=== PATIENT | male | born 2000 | race Caucasian/White ===

== ENCOUNTER 2022-01-27 13:40 | Emergency (ER) | payer OTHER, SELFPAY ==
--- NOTE | 2022-01-27 13:41 | ED.URI ---
HPI - URI/Sore Throat General Chief Complaint: Upper Respiratory Infection Stated Complaint: Headache/Sore Throat Time Seen by Provider: 01/27/22 13:41 Source: patient and RN notes reviewed History of Present Illness HPI Narrative: Patient is a 21-year-old male who presents the urgent care with complaints of a headache and a scratchy throat. Patient states that he woke up this morning and felt that he was having an allergy flareup . Patient states that he had itchy skin, immediate headache. Denies of any known exposure to illness. Patient states he did take a generic allergy medication this morning and his sore throat does feel much better. Patient denies of any fevers, nausea, vomiting. Patient states his main concern is that he called off work today and needed to be evaluated. No other acute complaints. No acute distress noted. Patient aware of the plan of care. Some parts of this dictation were generated by voice recognition software and may contain typographical and/or grammatical inaccuracies. Related Data Home Medications Medication Instructions Recorded Confirmed No Home Medications 01/27/22 01/27/22 Allergies Allergy/AdvReac Type Severity Reaction Status Date / Time No Known Allergies Allergy Verified 01/27/22 13:56 Review of Systems Review of Systems: CONSTITUTIONAL: Denies fever, chills, or sweats. EYES: Denies visual changes, redness, or discharge. ENT: Reports of postnasal drainage, sneezing, scratchy throat CARDIOVASCULAR: Denies chest pain, palpitations, or edema. RESPIRATORY: Denies cough or dyspnea. GASTROINTESTINAL: Denies abdominal pain, nausea, vomiting, or diarrhea. GENITOURINARY: Denies dysuria or hematuria. SKIN: Denies rash or itching. MUSCULOSKELETAL: Denies back pain, joint pain, or myalgia. NEUROLOGIC: Reports of headache All other systems reviewed are negative, except as documented in HPI. PMFSH Comments At the time of my signature, I reviewed and agree with the nursing past medical, surgical, social, and family history. There is no relevant family history pertinent to the patient complaint. Exam Narrative: GENERAL: This is a well-nourished, well-developed patient, in no apparent distress. HEAD: normocephalic, atraumatic. EYES: PERRL. Sclera clear/white. Mild bilateral injected conjunctiva. Vision is grossly intact. EARS: External ears normal, auditory canals clear and without drainage, TMs normal without perforation. Hearing grossly intact. NOSE: External nose normal with no obvious nasal discharge, nares without redness, no rhinorrhea. THROAT: Mucous membranes moist, posterior pharynx clear. Moderate postnasal drainage NECK: Neck supple, CARDIOVASCULAR: Regular rate and rhythm without murmurs, gallops, or rubs. RESPIRATORY: Clear to auscultation. Breath sounds equal bilaterally. No wheezes, rales, or rhonchi. SKIN: warm, intact with no suspicious lesions or rash, good texture and turgor. NEURO: awake, alert, and oriented to person, place and time. There were no obvious focal neurologic abnormalities. EXTREMITIES: No clubbing, cyanosis, or edema. Course Course Level of Care: Express Care Visit Vital Signs Vital signs: Vital Signs Temperature 99 F 01/27/22 13:47 Pulse Rate 94 01/27/22 13:47 Respiratory Rate 20 01/27/22 13:47 Blood Pressure 139/69 01/27/22 13:47 Pulse Oximetry 98 01/27/22 13:47 Temperature 99 F 01/27/22 13:47 Pulse Rate 94 01/27/22 13:47 Respiratory Rate 20 01/27/22 13:47 Blood Pressure 139/69 01/27/22 13:47 Pulse Oximetry 98 01/27/22 13:47 Reviewed MDM - URI/Sore Throat MDM Narrative Medical decision making narrative: Advised the patient to continue taking the allergy medication daily for the next couple weeks. Use ibuprofen/Tylenol as needed to treat your headache. Increase water intake and rest. Do not sleep with the windows open. Follow-up with your PCP within 2 to 5 days or for worsening symptoms or failure t
[2022-01-27 13:47] VITALS: BP 139/69; PULSE 94; RESP 20; TEMP 37.2; O2SAT 98
== END 2022-01-27 14:11 | disposition home or self-care (01) ==
PROVIDERS: Emergency Provider Nurse Practitioner Family
DX: J30.2 Other seasonal allergic rhinitis (principal)
CPT/HCPCS: 99211; G0463

== ENCOUNTER 2024-02-07 19:26 | Emergency (ER) | payer OTHER, SELFPAY ==
[2024-02-07 19:35] VITALS: BP 132/81; PULSE 73; RESP 16; TEMP 36.7; O2SAT 98
--- NOTE | 2024-02-07 20:02 | ED.GENADULT ---
HPI - General Adult General Chief complaint: Nausea/Vomiting/Diarrhea Stated complaint: Vomiting Source: patient Mode of arrival: ambulatory Limitations: no limitations History of Present Illness HPI narrative: Patient presents for evaluation of nausea and vomiting. Symptom onset yesterday. He had some diarrhea as well. Today his stool is more formed but is still loose. No blood or mucus in the stool. He has some GI discomfort only that time of vomiting but denies so otherwise. No fever, chills, urinary symptoms. He had some [place] food the day prior to symptom onset. No recent sick contacts. Denies recent or regular alcohol use. He is simply requesting a prescription for antiemetics. He has been able to keep fluids down and states that he feels hungry. Related Data Allergies Allergy/AdvReac Type Severity Reaction Status Date / Time No Known Allergies Allergy Verified 02/07/24 19:39 Review of Systems Review of Systems: CONSTITUTIONAL: Denies fever, chills, or sweats. EYES: Denies visual changes, redness, or discharge. ENT: Denies rhinorrhea, congestion, sore throat, or otalgia. CARDIOVASCULAR: Denies chest pain, palpitations, or edema. RESPIRATORY: Denies cough or dyspnea. GASTROINTESTINAL: Reports nausea and vomiting. Reports recent diarrhea, now with loose stool. Denies blood or mucus in the stool. Reports some abdominal discomfort at the time of vomiting but denies so otherwise. GENITOURINARY: Denies dysuria or hematuria. SKIN: Denies rash or itching. MUSCULOSKELETAL: Denies back pain, joint pain, or myalgia. NEUROLOGIC: Denies headache, numbness, dizziness, or weakness. PSYCHIATRIC: Denies anxiety or depression. [facility] Past Medical History Medical History No pertinent past medical history Surgical History Surgical History No pertinent past surgical history Family History Family History (Updated 02/07/24 @ 20:05 by FRANKI Leos, HEATHER) Mother Family history non-contributory Social History Social History Smoking status: Current every day smoker Tobacco type: e-cigarettes/vaping Alcohol intake: current Alcohol use details: SOCIAL Substance use: never Living arrangements: with family Gender identity (if verbalized by the patient): Male Spiritual care concerns: No Exam Narrative: GENERAL: Well-appearing, well-nourished, and in no acute distress. HEAD: Normocephalic, atraumatic. EYES: PERRLA and EOMI. ENT: Nares clear, no rhinorrhea or epistaxis. Mucous membranes moist. Oropharynx without tonsillar hypertrophy exudate or other lesions. Bilateral TMs pearly davis nonbulging NECK: Supple. No adenopathy or masses. No carotid bruits or JVD CHEST: Clear to auscultation. No respiratory distress. No wheezes rales or rhonchi HEART: Regular rate and rhythm. No murmur heard. Normal peripheral pulses. ABDOMEN: Soft, nontender, nondistended, normal active bowel sounds. EXTREMITIES: Normal range of motion. No edema. SKIN: Warm, dry, no rash. NEURO: No focal deficits. Alert and oriented x3. PSYCH: Normal mood and affect. Course Course Emergency Course: This is a 23-year-old male who presented for evaluation of nausea and vomiting. His symptoms are improving. He is not feel the need to pursue higher level care is that was discussed with him prior to the time of his arrival. Would like prescription for antiemetics. He has no abdominal tenderness warranting CT imaging. I think this is reasonable. He will be given a prescription for Zofran. He requested a note to allow to return to work. He was provided with this as well. Should follow-up outpatient for further evaluation treatment go to the ER for intractable vomiting or abdominal pain. Patient in agreement with plan of care. Level of Care: Expr
== END 2024-02-07 20:05 | disposition home or self-care (01) ==
PROVIDERS: Emergency Provider Nurse Practitioner
DX: R11.2 Nausea with vomiting, unspecified (principal); F17.290 Nicotine dependence, other tobacco product, uncomplicated
CPT/HCPCS: 99213; G0463

== ENCOUNTER 2025-05-11 18:25 | Emergency (ER) | payer SELFPAY ==
--- OUTSIDE RECORDS SUMMARY | 2025-05-11 18:28 | XMS_ITS | Clinical Summary ---
Author Organization [facility] [place] [address] [facility] lto Address [address] [facility] [address] Care Team Providers Care Supervisor Cook Room Name Role Phone Rj Damon MD Primary Care Provider [phone] Allergies No known active allergies Medications ondansetron ODT (ZOFRAN-ODT) 8 mg disintegrating tablet Take 1 tablet (8 mg total) by mouth every 8 (eight) hours as needed for nausea or vomiting 30 tablet 3 Active HYDROcodone-acetami nophen (NORCO) 5-325 mg per tabletIndications:P ain Take 1-2 tablets by mouth every 4 (four) hours as needed for pain Do not exceed 8 tablets/day. 20 tablet 4 Active predniSONE (DELTASONE) 20 mg tablet Take 4 tablets (80 mg) by mouth daily 4 PO x QD x 3 days, Then 3 PO q 3 D, then 2 PO QD x 3 D, Then 1 PO QD x 3 D then 1/2 PO QD x 3 D then stop. 33 tablet 4 Active Active Problems Problem Noted Date Diagnosed Date Seasonal allergic rhinitis due to pollen 021 Assessment & Plan (02/12/2021 9:30 AM CDT): Patient reports symptoms are worse in late spring or early summer -will start montelukast and as a last teen fluticasone nasal spray Patient continue with [id number] loratadine for management of general allergic rhinitis Immunizations Immunization Administration Dates Next Due Influenza, Quadrivalent, Spl it, Intramuscular 09/28/2019 Influenza, Unspecified 02/08/2023(Deferr ed: Patient Refused),06/19/2022(Deferred: Patient Refused),09/19/2020(Deferred: Patient Refused),09/19/2019(Deferred: Patient Refused) Surgical History Surgery Date Site/Laterality Comments NO PAST SURGERIES Medical History Medical History Date Comments No pertinent past medical history Family History Medical History Relation Name Comments No Known Problems Brother No Known Problems Father Gestational diabetes Mother No Known Problems Sister 1 No Known Problems Sister 2 Relation Name Status Comments Brother Alive Father Alive Mother Alive Sister 1 Alive Sister 2 Alive Social History Tobacco Use Types Packs/Day Years Used Date Smoking Tobacco: Every Day Vaping Smokeless Tobacco: Never Tobacco Cessation:Ready to Q uit: Yes; Counseling Given: Yes Comments:used to smoke, now vaping, but trying to quit Humiliation, Afraid, Rape, and Kick questionnair e Answer Date Recorded Within the last year, have y ou been afraid of your partner or ex-partner? No 02/08/2023 Within the last year, have y ou been humiliated or emotionally abused in other ways by your partner or ex-partner? No Within the last year, have y ou been kicked, hit, slapped, or otherwise physically hurt by your partner or ex-partner? No 02/08/2023 Within the last year, have y ou been raped or forced to have any kind of sexual activity by your partner or ex-partner? No 02/08/2023 Social Connection and Isolation Panel Answer Date Recorded In a typical week, how many times do you talk on the phone with family, friends, or neighbors? More than three times a week 02/08/2023 How often do you get togethe r with friends or relatives? More than three times a week 02/08/2023 How often do you attend chur ch or yazidism services? More than 4 times per year 02/08/2023 Do you belong to any clubs o r organizations such as mosque groups, unions, fraternal or athletic groups, or school groups? No 02/08/2023 How often do you attend meet ings of the clubs or organizations you belong to? Never 02/08/2023 Are you , , di vorced, , never , or living with a partner? Never 02/08/2023 AUDIT-C Answer Date Recorded Q1: How often do you have a drink containing alc ohol? 2-4 times a month 02/08/2023 Q2: How many drinks containi ng alcohol do you have on a typical day when you are drinking? 3 or 4 02/08/2023 Q3: How often do you have si x or more drinks on one occasion? Less than monthly 02/08/2023 Overall Financial Resource Strain (CARDIA) Answe r Date Recorded How hard is it for you to pa y for the very basics like food, housing, medical care, and heating? Not hard at all 02/08/2023 PHQ-2 Answer Date Recorded PHQ-2 Total Score (If total score is 3 or more points, staff should administer the PHQ-9) 2 02/08/2023 [facility] - Occupational Stress Questionnaire Answer Date Recorded Do you feel stress - tense, restless, nervous, or anxious, or unable to sleep at night because your mind is troubled all the time - these days? Only a little 02/08/2023 Exercise Vital Sign Answer Date Recorde d On average, how many days pe r week do you engage in moderate to strenuous exercise (like a brisk walk)? 7 days 02/08/2023 On average, how many minutes do you engage in exercise at this level? 60 min 02/08/2023 Hunger Vital Sign Answer Date Recorded Within the past 12 months, y ou worried that your food would run out before you got the money to buy more. Never true 02/09/20 23 Within the past 12 months, t he food you bought just didn't last and you didn't have money to get more. Never true 02/08/2023 PRAPARE - Transportation Answer Date Re corded In the past 12 months, has l ack of transportation kept you from medical appointments or from getting medications? No 01/18 In the past 12 months, has l ack of transportation kept you from meetings, work, or from getting things needed for daily living? No 02/08/2023 Housing Stability Vital Sign Answer Burt e Recorded In the last 12 months, was t here a time when you were not able to pay the mortgage or rent on time? No 02/08/2023 In the last 12 months, how many places have you lived? 1 02/08/2023 In the last 12 months, was t here a time when you did not have a steady place to sleep or slept in a [place] [facility] [place] (including now)? No 02/08/2023 Personal Safety Answer Date Recorded Have you ever been in or are you currently in a harmful physical or emotional relationship or is someone making you feel afraid or unsafe? Denies 09/02/2024 Sex and Gender Information Value Date Recorded Sex Assigned at Not on file Legal Sex Male 4:49 AM TALENT AGENT Gender Identity Not on file Sexual Orientation Not on file Obstetrics History Last Filed Vital Signs Vital Sign Reading Time Taken Comments Blood Pressure 129/53 09/02/2024 2:00 PM TALENT AGENT Pulse 77 09/02/2024 2:00 PM TALENT AGENT Temperature 36.7 C (98 F) 09/02/2024 4:07 AM TALENT AGENT Respiratory Rate 16 09/02/2024 9:30 AM TALENT AGENT Oxygen Saturation 96% 09/02/2024 2:00 PM TALENT AGENT Inhaled Oxygen Concentration - - Weight 86.2 kg (190 lb) 02/06/2024 11:52 PM CDT Height 182.9 cm (6') 02/06/2024 11:52 PM CDT Body Mass Index 25.77 02/06/2024 11:52 PM CDT Plan of Treatment Health Maintenance Due Date Last Done Comments Hepatitis C Screening 1998 HPV Vaccines (1 - Male 3-dose series) 2013 Pneumococcal vaccine <65 (1 of 2 - PCV) 2017 Regular Well Visit/Exam 18-64 02/12/2022 02/12/2021 Depression Screening 02/09/2024 02/08/2023, 02/13/20 21 Influenza Vaccine (#1) 2025 09/28/2019, 2017 DTaP/Tdap/Td Vaccine (2 - Td or Tdap) 07/07/2028 Varicella Vaccines Completed 08/08/2018, 07/07/2018 Hepatitis B Screening Completed 04/11/2019 , 08/08/2018, 07/07/2018 Insurance [facility] [address] [facility] HMO/PPO Address: [address] [place] [address] [facility] CHO[employer] PL[employer] Care Teams Supervisor Cook Room Relationship Specialty Start Date End Date Rj Damon MD [address] [place] [address] PCP - General Family Medicine 02/11/21
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
--- OUTSIDE RECORDS SUMMARY | 2025-05-11 18:28 | XMS_ITS | Clinical Summary ---
Author Organization [facility] Address [address] [place] [address] Phone Care Team Providers Care Body Artist Name Role Phone Provider, None Primary Care Provider Unavailabl e Allergies No known active allergies Medications ondansetron (ZOFRAN-ODT) 4 MG TABLET DISPERSIBLE Take 1 Tablet by mouth every 8 hours as needed for Nausea - 1st line. 20 Tablet 4 Active methylPREDNISolo ne (MEDROL DOSPACK) 4 MG Tablet Therapy Pack See product package insert for dosing schedule 21 Tablet 4 Active Social History Tobacco Use Types Packs/Day Years Used Date Smoking Tobacco: Never Smokeless Tobacco: Never Tobacco Cessation:Counseling Given: Not Answered Alcohol Use Standard Drinks/Week Comments Yes 0 (1 standard drink = 0.6 oz pur e alcohol) occasionally Sex and Gender Information Value Date Recorded Sex Assigned at Not on file Legal Sex Male 10:32 PM CDT Gender Identity Not on file Sexual Orientation Not on file Last Filed Vital Signs Vital Sign Reading Time Taken Comments Blood Pressure 144/83 04/03/2024 9:15 PM CDT Pulse 91 04/03/2024 9:15 PM CDT Temperature 35.8 C (96.5 F) 04/03/2024 7:49 PM CDT Respiratory Rate 17 04/03/2024 9:15 PM CDT Oxygen Saturation 99% 04/03/2024 9:15 PM CDT Inhaled Oxygen Concentration - - Weight 88.5 kg (195 lb) 04/03/2024 7:49 PM CDT Height 182.9 cm (6') 04/03/2024 7:49 PM CDT Body Mass Index 26.45 04/03/2024 7:49 PM CDT Plan of Treatment Not on file Insurance MEDICAID BL[place] Care Teams Body Artist Relationship Specialty Start Date End Date Provider, None TERRI PCP - General 11/18/23
[2025-05-11 18:34] VITALS: BP 154/96; PULSE 79; RESP 16; TEMP 36.8; O2SAT 99
--- NOTE | 2025-05-11 18:36 | ED.URI ---
HPI - URI/Sore Throat General Chief Complaint: Upper Respiratory Infection Stated Complaint: allergy, runny nose, migraine, itchy watery eyes Time Seen by Provider: 05/11/25 18:50 Source: patient and RN notes reviewed Mode of arrival: ambulatory Limitations: no limitations History of Present Illness HPI Narrative: 24-year-old male presents with concern of for 3 day history of runny nose, stuffy nose, headache, sore throat, cough. He was sent home from work today. He has been taking Claritin. MD elicited complaint: cough, sore throat and rhinorrhea Related Data Allergies Allergy/AdvReac Type Severity Reaction Status Date / Time No Known Allergies Allergy Verified 05/11/25 18:39 Review of Systems Review of Systems: CONSTITUTIONAL: Denies malaise, chills, sweats, or fever. EYES: Denies visual changes, redness, or discharge. ENT: Reports rhinorrhea, congestion, and sore throat. CARDIOVASCULAR: Denies chest pain, palpitations, or edema. RESPIRATORY: Reports cough. Denies dyspnea. GASTROINTESTINAL: Denies abdominal pain, nausea, vomiting, diarrhea SKIN: Denies rash or itching. MUSCULOSKELETAL: Denies myalgia. NEUROLOGIC: Reports headache. All systems reviewed & are unremarkable except as noted in HPI and below PMFSH Past Medical History Medical History No pertinent past medical history Surgical History Surgical History No pertinent past surgical history Family History Family History (System 06/14/24 @ 15:27 by Rolando Ly) Mother Family history non-contributory Social History Social History (System 06/14/24 @ 15:27 by Rolando Ly) Smoking status: Current every day smoker Tobacco type: e-cigarettes/vaping Alcohol intake: current Alcohol use details: SOCIAL Substance use: never Living arrangements: with family Gender identity (if verbalized by the patient): Male Spiritual care concerns: No Comments At time of signature, agree with nursing past medical, surgical, social and family history. There is no relevant family history pertinent to the presenting complaint Exam Narrative: GENERAL: Well-appearing, well-nourished, and in no acute distress. HEAD: Normocephalic EYES: PERRLA, conjunctivae clear ENT: Nares clear, clear discharge. Mucous membranes moist. TM pearly davis with dull light reflex bilaterally; no tragal tenderness. Oropharynx not erythematous without lesions. Tonsils not enlarged and without exudate, no drooling, no hoarseness, no trismus, uvula midline. NECK: Supple. No lymphadenopathy CHEST: Clear to auscultation, breath sounds equal. No wheezing, rhonchi, rales, or stridor. No respiratory distress, speaks in full sentences. HEART: Regular rate and rhythm. No murmur heard. SKIN: Warm, dry, no rash. NEURO: Alert and oriented x3. PSYCH: Normal mood and affect Course Course Emergency Course: Patient is aware of diagnosis, understands and agrees to treatment plan. Anticipatory guidance given. Patient agrees to follow-up as directed and is aware of reasons to seek care at the emergency department. Portions of this record may have been created with voice recognition software Level of Care: Express Care Visit Vital Signs Vital signs: Reviewed. MDM - URI/Sore Throat MDM Narrative Medical decision making narrative: Differential diagnosis considered: Brown virus, strep pharyngitis, allergic rhinitis, upper respiratory tract infection, sinusitis, rhinosinusitis, nasopharyngitis. viral pharyngitis, otitis media, otitis externa, pneumonia, bronchitis, viral cough syndrome, viral syndrome, and influenza. Exam findings show no acute concerns or changes; patient is non-toxic appearing and is in no distress. Patient is appropriate for outpatient treatment and follow-up. Lab Data Attestation: I reviewed the patient's lab results. Critical Care Time Critical Care Time Critical Care Time: No Discharge Plan Discharge Clinical Impression: Upper respiratory infection Patient Disposition: Home Condition: Stable Instructions: Antibiotic Form, Upper Respiratory Infection (ED) Additional Instructions: Viral illness may last between 7-21 days; antibiotics do not cure viral illness and are NOT recommended at this time. Recommend antihistamine such as Benadryl at night time and Zyrtec or Maria Luz during the day Also, recommend symptomatic treatment includes: rest, fluids, and increase humidity of the air at home. Recommend Acetaminophen as directed on the bottle to reduce fever, pain, headache. Avoid smoking/second-hand smoke. Please schedule a follow-up visit with your personal physician for further evaluation and treatment within 3-5days. Including recheck and discussion of your blood pressure. If your symptoms persist, change or worsen significantly before you can contact your personal physician then please, without delay, go to the emergency department for further evaluation. Patient Language: Latvian Prescriptions: New cetirizine-pseudoephedrine [Zyrtec-D] 5-120 mg tablet extended release 12 hr 1 tablet PO Q12H PRN (Reason: nasal congestion) Qty: 12 0RF dextromethorphan-guaifenesin [Mucinex DM] 60-1,200 mg tablet extended release 12 hr 1 tablet PO Q12H Qty: 12 0RF ipratropium bromide 21 mcg (0.03 %) spray,non-aerosol 2 spray NASAL TID PRN (Reason: nasal drainage) Qty: 30 0RF Rx Instructions: administer into each nostril Follow-up/Referrals: PHYSICIAN,KEG INSPECTOR [Primary Care Provider, Internal Medicine] Stand Alone Forms: Work/School Release IP Time of Disposition: 18:58
[2025-05-11 19:01] LABS: EDCOVIDSCREEN Negative (Negative); EDINFLUASCREEN Negative (Negative); EDINFLUBSCREEN Negative (Negative); EDSTREPNEGPOS1 Negative (Negative)
== END 2025-05-11 19:02 | disposition home or self-care (01) ==
PROVIDERS: Emergency Provider Nurse Practitioner
DX: J06.9 Acute upper respiratory infection, unspecified (principal); Z20.822 Contact with and (suspected) exposure to COVID-19; F17.290 Nicotine dependence, other tobacco product, uncomplicated
CPT/HCPCS: 87081; 87426; 87804; 87880; 99213; G0463